=== PATIENT | male | born 1965 | race Caucasian/White ===

== ENCOUNTER 2022-01-29 07:03 | Emergency (ER) | payer OTHER ==
[2022-01-29 08:08] LABS: HEMOGLOBIN 16.6 gm/dl (14.0-17.5); RED BLOOD COUNT 5.82 M/UL (4.20-5.50); WHITE BLOOD COUNT 11.5 K/UL (4.5-11.0)
[2022-01-29 08:19] LABS: BUN/CREATININE RATIO 10 (0-10)
[2022-01-29] MEDS ORDERED: CEPHALEXIN500 M1 PO (09:39)
== END 2022-01-29 09:50 | disposition home or self-care (01) ==
LOC: ER1 07:03
PROVIDERS: Physician Assistant
DX: N30.01 Acute cystitis with hematuria (principal); Z87.442 Personal history of urinary calculi
CPT/HCPCS: 80053; 81001; 83690; 85025; 96374; 96375; 99284; J0696; J1885; J2405